=== PATIENT | male | born 1985 | race American Indian/Alaskan Native ===

== ENCOUNTER 2016-10-29 06:09 | Emergency (ER) | payer MEDICAID ==
[2016-10-29 06:53] VITALS: BP 116/61
[2016-10-29] MEDS ORDERED: risperiDONE 1 MG Tab PO STA (07:19)
--- NOTE | 2016-10-29 07:20 | EDM.PDOC ---
ED HPI GENERAL MEDICAL PROBLEM - General Chief Complaint: Drug or Alcohol Abuse Stated Complaint: FROM [facility] [place] Time Seen by Provider: 10/29/16 07:10 Source of Information: Reports: Old Records, RN History Limitations: Reports: Altered Mental Status - History of Present Illness INITIAL COMMENTS - FREE TEXT/NARRATIVE: 31 yo NA male was sent to the ER today from [facility] for hallucinations. Has a known hx of schizophrenia and had not been taking his psych meds, apparently preferring to use street drugs including meth and opiates. Due to hallucinations he was manifesting at [facility] over the past roughly 8 hrs he has been given diazepam 30 mg po and now is quite sedated upon examination here in the ED. Old records suggest previous prescribing of Risperdol 3 mg daily which apparently he is not currently getting. 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) - Related Data Allergies Allergy/AdvReac Type Severity Reaction Status Date / Time No Known Allergies Allergy Verified 10/29/16 06:24 Home Meds: Home Meds DULoxetine [Cymbalta] 60 mg PO DAILY 05/12/15 [History] Gabapentin [Gabapentin] 300 mg PO TID 05/12/15 [History] Prazosin [Minpress] 2 mg PO DAILY 05/12/15 [History] clonazePAM [Clonazepam] 2 mg PO BID 05/12/15 [History] hydrOXYzine Pamoate [Hydroxyzine Pamoate] 25 mg PO TID 05/12/15 [History] risperiDONE [RisperiDAL] 3 mg PO DAILY 05/12/15 [History] Past Medical History Cardiovascular History: Reports: None Respiratory History: Reports: None Gastrointestinal History: Reports: Chronic Constipation Musculoskeletal History: Reports: Other (See Below) Other Musculoskeletal History: L ankle fx Other Neuro History: 2005 Psychiatric History: Reports: Addiction, Schizophrenia Other Psychiatric History: treatment etoh 2006. recreational drug abuse Dermatologic History: Reports: Other (See Below) Other Dermatologic History: ankles - Past Surgical History Cardiovascular Surgical History: Reports: None Respiratory Surgical History: Reports: None GI Surgical History: Reports: Other (See Below) Other GI Surgeries/Procedures: States he has had a cholecystectomy and appendectomy Musculoskeletal Surgical History: Reports: Other (See Below) Other Musculoskeletal Surgeries/Procedures:: left foot surgery, pins placed Social & Family History - Tobacco Use Smoking Status *Q: Current Every Day Smoker Years of Tobacco use: 11 - Alcohol Use Days Per Week of Alcohol Use: 1 Number of Drinks Per Day: 2 Total Drinks Per Week: 2 - Recreational Drug Use Recreational Drug Use: Yes Recreational Drug Type: Reports: Methamphetamine, Other (see below) Recreational Drug Use Frequency: Socially - Living Situation & Occupation Living situation: Reports: Single, with Family Occupation: Unemployed ED ROS GENERAL - Review of Systems Review Of Systems: Unable To Obtain (Due to sedation from diazepam) ED EXAM, BEHAVIORAL HEALTH - Physical Exam Exam: See Below Exam Limited By: Altered Mental Status General Appearance: WD/WN, No Apparent Distress, Lethargic Eye Exam: Bilateral Eye: Normal Inspection, PERRL Ears: Normal External Exam, Normal Canal Nose: Normal Inspection, Normal Mucosa, No Blood Throat/Mouth: Normal Inspection, Normal Lips, Normal Oropharynx, No Airway Compromise Head: Atraumatic, Normocephalic Neck: Normal Inspection Respiratory/Chest: No Respiratory Distress, Lungs Clear, Normal Breath Sounds, No Accessory Muscle Use Cardiovascular: Regular Rate, Rhythm GI/Abdominal: Normal Bowel Sounds, Soft, No Distention Back Exam: Normal Inspection Extremities: Normal Inspection, Non-Tender, No Pedal Edema Neurological: Alert, CN II-XII Intact, No Motor/Sensory Deficits Psychiatric: Flat Affect Skin Exam: Warm, Dry, Intact, Normal color, No rash COURSE, BEHAVIORAL HEALTH COMP - Course Vital Signs: Last Vital Signs Temp 35.9 C 10/29/16 06:28 Pulse 96 10/29/16 06:28 Resp 16 10/29/16 06:28 BP 116/61 10/29/16 06:28 Pulse Ox 98 10/29/16 06:28 Orders, Labs, Meds: Medications Discontinued Medications Generic Name Dose Route Start Last Admin Trade Name Markq PRN Reason Stop Dose Admin Gabapentin 300 mg 10/29/16 13:13 10/29/16 13:16 Neurontin PO 10/29/16 13:14 300 mg ONETIME ONE Administration Risperidone 3 mg 10/29/16 12:00 10/29/16 13:14 Risperidal PO 10/29/16 12:01 3 mg ONETIME ONE Administration Departure - Departure Time of Disposition: 14:00 Disposition: Home, Self-Care 01 Condition: Good Clinical Impression: Schizophrenia Qualifiers: Schizophrenia type: unspecified Qualified Code(s): F20.9 - Schizophrenia, unspecified - Discharge Information Referrals: PCP,None [Primary Care Provider] - Forms: ED Department Discharge
[2016-10-29] MEDS ORDERED: risperiDONE 1 MG Tab PO ONE (12:00)
[2016-10-29] MEDS ORDERED: Gabapentin 300 MG Cap PO ONE (13:13)
== END 2016-10-29 15:54 | disposition home or self-care (01) ==
LOC: JP.ED 06:09
DX: F20.9 Schizophrenia, unspecified (principal); F17.200 Nicotine dependence, unspecified, uncomplicated; Z90.49 Acquired absence of other specified parts of digestive tract; Z98.890 Other specified postprocedural states; Z79.899 Other long term (current) drug therapy
CPT/HCPCS: 99285; A9270